=== PATIENT | female | born 1995 | race Caucasian/White ===

== ENCOUNTER 2018-03-08 15:50 | Emergency (ER) | payer OTHER ==
[~2018-03-08] VITALS: Ht 175.3 cm; Wt 172.4 kg
[2018-03-08] MEDS ORDERED: ZADITOR5 M1 INTRAOCULR (16:09)
[2018-03-08] MEDS ORDERED: KEFLEX500 M1 PO (16:09)
== END 2018-03-08 16:16 | disposition home or self-care (01) ==
LOC: ER 15:50
DX: H65.91 Unspecified nonsuppurative otitis media, right ear (principal); I10 Essential (primary) hypertension; F17.210 Nicotine dependence, cigarettes, uncomplicated; Z90.49 Acquired absence of other specified parts of digestive tract